=== PATIENT | female | born 1985 | race Caucasian/White ===

== ENCOUNTER 2021-09-19 08:54 | Emergency (ER) | payer MEDICAID, SELFPAY ==
[~2021-09-19] VITALS: Ht 157.5 cm; Wt 67.1 kg
[~2021-09-19 08:54] MED LIST: ALBU17AE26 INH; FLO44 IH
[2021-09-19 09:10] VITALS: BP_SYST 144
[2021-09-19] MEDS ORDERED: IPRATROPIUM/ALBUTEROL SULFATE 3 ML AMPUL.NEB (DUONEB) INH ONE (09:30)
[2021-09-19] MEDS ORDERED: PRED20TA PO (10:25)
[2021-09-19] MEDS ORDERED: predniSONE 20 MG TABLET PO ONE (10:30)
[2021-09-19 11:00] VITALS: BP_SYST 104
== END 2021-09-19 10:55 | disposition home or self-care (01) ==
LOC: SED 08:54
DX: O99.511 Diseases of the respiratory system complicating pregnancy, first trimester (principal); J45.901 Unspecified asthma with (acute) exacerbation; J06.9 Acute upper respiratory infection, unspecified; Z20.822 Contact with and (suspected) exposure to COVID-19; Z3A.10 10 weeks gestation of pregnancy
CPT/HCPCS: 36415; 86710; 93005; 94640; 99284

== ENCOUNTER 2023-09-10 12:16 | Emergency (ER) | payer MEDICAID ==
[~2023-09-10] VITALS: Ht 157.5 cm; Wt 52.2 kg
[~2023-09-10 12:16] MED LIST changes: +PRED20TA PO
[2023-09-10 12:25] VITALS: BP_SYST 119; PULSE 107; RESP 18; TEMP 97.1; O2SAT 98
[2023-09-10 13:33] LABS: STREPTOCOCCUS A SCREEN (RAPID) NEGATIVE (NEGATIVE)
[2023-09-10 13:54] LABS: COVID19 ANTIGEN SOFIA FIA NEGATIVE (NEGATIVE); INFLUENZA TYPE A NEGATIVE (NEGATIVE)
[2023-09-10 13:55] LABS: INFLUENZA TYPE B NEGATIVE (NEGATIVE)
[2023-09-10] MEDS ORDERED: AUG875 PO (14:22)
[2023-09-10 14:28] VITALS: BP_SYST 119; PULSE 107; RESP 18; TEMP 97.1; O2SAT 98
== END 2023-09-10 14:27 | disposition home or self-care (01) ==
LOC: SED 12:16
DX: H66.91 Otitis media, unspecified, right ear (principal); J02.9 Acute pharyngitis, unspecified; J45.909 Unspecified asthma, uncomplicated; Z79.899 Other long term (current) drug therapy; Z20.822 Contact with and (suspected) exposure to COVID-19
CPT/HCPCS: 36415; 86308-TC; 86403; 87081; 99283

== ENCOUNTER 2024-05-02 13:10 | Emergency (ER) | payer BC, MEDICAID ==
[~2024-05-02] VITALS: Ht 157.5 cm; Wt 62.6 kg
[2024-05-02 13:10] VITALS: BP_SYST 120; PULSE 75; RESP 17; TEMP 98.2; O2SAT 98
[~2024-05-02 13:10] MED LIST changes: +AUG875 PO
[2024-05-02 13:53] LABS: BASOPHILS % (AUTO) 0.5 % (0.0-2.0); EOSINOPHILS # (AUTO) 0.3 K/uL (0.0-0.4); EOSINOPHILS % (AUTO) 4.3 % (0.0-4.0); HEMATOCRIT 38.1 % (36-48); HEMOGLOBIN 12.5 g/dL (12.0-16.0); LYMPHOCYTES # (AUTO) 1.5 K/uL (1.0-5.5); LYMPHOCYTES % (AUTO) 20.6 % (20.5-51.5); MEAN CORPUSCULAR HEMOGLOBIN 29 pg (27-31); MEAN CORPUSCULAR HGB CONC 33 % (32-36); MEAN CORPUSCULAR VOLUME 89 fL (79.0-98.0); MONOCYTES # (AUTO) 0.3 K/uL (0.0-1.0); MONOCYTES % (AUTO) 4.8 % (1.7-9.3); NEUTROPHILS # (AUTO) 5.1 K/uL (1.8-7.7); NEUTROPHILS % (AUTO) 69.8 % (40.0-70.0); PLATELET COUNT (AUTO) 265 K/uL (130-430); RED BLOOD CELL COUNT(AUTO) 4.31 MIL/uL (4.2-6.2); RED CELL DISTRIBUTION WIDTH 13.6 % (9.0-15.0); WHITE BLOOD COUNT (AUTO) 7.2 K/uL (4.8-10.8)
[2024-05-02 13:58] LABS: SERUM HCG (QUALITATIVE) NEGATIVE (NEGATIVE)
[2024-05-02 14:13] LABS: PROTHROMBIN TIME 9.9 SECS (9.5-12.5)
[2024-05-02 14:24] LABS: ALBUMIN 3.8 g/dL (3.4-4.8); BILIRUBIN,DIRECT 0.1 mg/dL (0.0-0.3); CALCIUM 8.9 mg/dL (8.4-11.0); CREATININE 0.72 mg/dL (0.55-1.30); POTASSIUM 3.7 mmol/L (3.5-5.1); TOTAL BILIRUBIN 0.5 mg/dL (0.0-1.0); TOTAL PROTEIN, SERUM 8.1 g/dL (6.4-8.3)
[2024-05-02 15:35] LABS: BILIRUBIN,URINE NEGATIVE (NEGATIVE); BLOOD, URINE 1+ (NEGATIVE); CLARITY/URINE CLEAR (CLEAR); COLOR,URINE YELLOW (YELLOW); GLUCOSE,URINE NEGATIVE (NEGATIVE); KETONES,URINE NEGATIVE (NEGATIVE); LEUKOCYTE ESTERASE ,URINE NEGATIVE (NEGATIVE); NITRITE, URINE NEGATIVE (NEGATIVE); PROTEIN URINE NEGATIVE (NEGATIVE); UROBILINOGEN,URINE 0.2 (0.2-1.0)
[2024-05-02 15:45] LABS: RBC,URINE 0-3 /HPF (0-3)
[2024-05-02 15:46] LABS: BACTERIA,URINE RARE /HPF (None Seen); MUCUS,URINE None Seen /LPF (None Seen); WBC,URINE NONE SEEN /HPF (0-3)
[2024-05-02] MEDS: ONDANSETRON 4 MG ODT TAB PO ONE (16:22)
[2024-05-02] MEDS: IBUPROFEN 600 MG TABLET PO ONE (16:22)
[2024-05-02] MEDS ORDERED: HYDR-3917 PO (17:00)
[2024-05-02] MEDS ORDERED: ONDA-8 TL (17:00)
[2024-05-02] MEDS ORDERED: IBUP-1969 PO (17:00)
[2024-05-02 17:24] VITALS: BP_SYST 121; PULSE 75; RESP 17; TEMP 98.2; O2SAT 98
== END 2024-05-02 17:24 | disposition home or self-care (01) ==
LOC: SED 13:10
DX: R10.32 Left lower quadrant pain (principal); R11.0 Nausea; R14.0 Abdominal distension (gaseous); J45.909 Unspecified asthma, uncomplicated; Z79.899 Other long term (current) drug therapy; Z79.2 Long term (current) use of antibiotics
CPT/HCPCS: 99284; 74176; 80076; 80048; 81001; 82150; 84703; 83690; 85025; 85610; 85730; 36415; 81025; 83605; 82397; Q0162; 81000; 81015